=== PATIENT | male | born 1945 | race Caucasian/White ===

== ENCOUNTER → 2016-07-29 | Outpatient (CLI) | payer OTHER ==
--- NOTE | 2016-07-29 22:35 | US ---
Bilateral Lower Extremity Duplex Venous Doppler Interventional Consult Relevant History: Left ankle swelling and pain. Pain is especially bad with walking. Patient compl ains of significant calf and foot pain with walking and any degree of prolonged standing. His physical exam shows indeed pitting edema at the left ankle above the sock line. There is a mild degree of edema on the right. There are extrinsically visible ropey varicosities at the medial knee and medial calf on the left, and extending down to his foot. There is a milder degree of ropy varico sities on the right. There is no cellulitis or ulceration. Conservatively, the patient has tried elevation and walking and exercise and frequent pain medication . He takes pain medication seven days a week. The patient is referred for varicose vein evaluation as the source of his leg pain. TECHNIQUE: Bilateral duplex upright ultrasound of the lower extremities are performed by myself, fol lowed by discussion with the patient. FINDINGS Left: The great saphenous vein measures 10 mm at the saphenofemoral junction, 6.2 mm at the proximal thigh, and exits the sheath where it measures 5.3 mm very superficially. At the level of the knee, it contributes to large extrinsically visible ropey varicose veins. It then goes back into the sheat h at the mid calf, where it measures 4.8 mm. There is no calenderer on the left. The great saphenous system demonstrates 12 second reflux throughout its entire course from ankle to g roin. The lesser saphenous system and vein of Giacomini are normal. There is no ALT. Right: The great saphenous system is normal in size, and does not show reflux. It measures 3.6 mm p roximally and maintains that size throughout. However, at the level of the proximal calf and knee, t here are tributaries that come off of the greater saphenous system that demonstrate greater than 5 se cond reflux. There is a calenderer at the distal calf, measuring 3.4 mm, that does not show signific ant reflux. The lesser saphenous system is normal. IMPRESSIONS 1. 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 2. Small tributaries on the left. 3. Refluxing tributaries on the right below the knee. Treatment recommendations 1. There is no question in my mind that the varicosities and the extent of venous hypertension on th e left is a source of the patient's leg cramp and pain. Treatment is recommended for this reason. 2. Treatment is recommended at this stage on the right for preventative measures. 3. Laser ablation of the left great saphenous vein from ankle to groin, followed by multivessel scle rotherapy. 4. Multivessel sclerotherapy below the knee involving refluxing tributaries on the right. Both procedures can be done on the same day. A prescription of medical grade compression stocking wa s given to the patient. All of the above are discussed with the patient, who expressed understanding . Thank you very much for your referral. Total [id number] consultation was 45 minutes. Crosscutting Measure: Patient's current list of medications including all known prescriptions, over- the-counters, herbals, and vitamin/mineral/dietary supplements are reviewed. Medications' name, dosa ge, frequency, and route of administration are confirmed. Patient is a nonsmoker.
== END ==
LOC: FIMAGING 11:57
PROVIDERS: ATTEND Family Medicine
DX: I83.812 Varicose veins of left lower extremity with pain (principal)

== ENCOUNTER 2016-08-26 07:42 | Day surgery (SDC) | payer OTHER ==
[2016-08-26] MEDS ORDERED: fentaNYL 100 MCG/2 ML INJ ONE (07:49)
[2016-08-26] MEDS ORDERED: MIDAZOLAM 2 MG/2 ML VIAL ONE (07:49)
[2016-08-26] MEDS ORDERED: SODIUM TETRADECYL SULFATE 60 MG/2 ML VIAL IV ONE (08:18)
[2016-08-26] MEDS ORDERED: LIDO/EPI 1% **for epidural** 30 ML SDV ONE (08:18)
[2016-08-26] MEDS ORDERED: HYDROCODONE/APAP 5/325 TAB PO PRN (10:34)
[2016-08-26] MEDS ORDERED: ONDANSETRON 4 MG/2 ML VIAL IVP PRN (10:34)
[2016-08-26] MEDS ORDERED: IBUPROFEN 200 MG TAB PO ONE (10:34)
[2016-08-26] MEDS ORDERED: NS 1,000 ML IV SCH (10:34)
[2016-08-26] MEDS ORDERED: ONDANSETRON DISINTEGRATING 4 MG TAB PO PRN (10:34)
== END 2016-08-26 12:05 | disposition home or self-care (01) ==
LOC: FIMAGING 07:42
PROVIDERS: ATTEND Radiology Diagnostic Radiology
PROC: 3E033TZ Introduction of Destructive Agent into Peripheral Vein, Percutaneous Approach (ICD-10-PCS; 2016-08-26)
PROC: 065Q3ZZ Destruction of Left Saphenous Vein, Percutaneous Approach (ICD-10-PCS; principal; 2016-08-26 10:09)
PROC: 3E033TZ Introduction of Destructive Agent into Peripheral Vein, Percutaneous Approach (ICD-10-PCS; principal; 2016-08-26 10:09)
DX: I83.813 Varicose veins of bilateral lower extremities with pain (principal)
CPT/HCPCS: J2250; J2405; J3010

== ENCOUNTER → 2016-09-03 | Outpatient (CLI) | payer OTHER | LOC: FIMAGING 12:32 | PROVIDERS: ATTEND Radiology Diagnostic Radiology | DX: Z09 Encounter for follow-up examination after completed treatment for conditions other than malignant neoplasm (principal) ==

== ENCOUNTER → 2016-10-26 | Outpatient (CLI) | payer OTHER | LOC: FIMAGING 07:49 | PROVIDERS: ATTEND Radiology Diagnostic Radiology | DX: M79.605 Pain in left leg (principal); I80.3 Phlebitis and thrombophlebitis of lower extremities, unspecified ==

== ENCOUNTER → 2016-11-18 | Day surgery (SDC) | payer OTHER ==
[~2016-11-18] MED LIST: SODIUM TETRADECYL SULFATE 60 MG/2 ML VIAL IV ONE
== END | disposition home or self-care (01) ==
LOC: FIMAGING 13:11
PROVIDERS: ATTEND Radiology Diagnostic Radiology
PROC: 3E033TZ Introduction of Destructive Agent into Peripheral Vein, Percutaneous Approach (ICD-10-PCS; principal; 2016-11-18)
DX: I83.90 Asymptomatic varicose veins of unspecified lower extremity (principal)

== ENCOUNTER → 2017-02-23 | Outpatient (CLI) | payer OTHER | LOC: GIMAGING 14:48 | PROVIDERS: ATTEND Family Medicine | DX: M47.896 Other spondylosis, lumbar region (principal); M51.26 Other intervertebral disc displacement, lumbar region; M53.86 Other specified dorsopathies, lumbar region | CPT/HCPCS: 72100-PO ==

== ENCOUNTER → 2017-05-06 | Outpatient (CLI) | payer OTHER | LOC: FIMAGING 07:43 | PROVIDERS: ATTEND Radiology Diagnostic Radiology | DX: L97.829 Non-pressure chronic ulcer of other part of left lower leg with unspecified severity (principal) ==

== ENCOUNTER → 2017-06-22 | Day surgery (SDC) | payer OTHER ==
[~2017-06-22] MED LIST changes: +LIDO/EPI 1% **for epidural** 30 ML SDV ONE; +LIDOCAINE 1% 300 MG/30 ML SDV ONE; +SODIUM TETRADECYL SULFATE 3% 2 ML VIAL IV ONE; -SODIUM TETRADECYL SULFATE 60 MG/2 ML VIAL IV ONE
== END | disposition home or self-care (01) ==
LOC: FIMAGING 12:52
PROVIDERS: ATTEND Radiology Diagnostic Radiology
DX: I83.812 Varicose veins of left lower extremity with pain (principal)

== ENCOUNTER → 2018-07-20 | Outpatient (CLI) | payer OTHER | LOC: FIMAGING 12:47 | PROVIDERS: ATTEND Podiatrist Foot & Ankle Surgery | DX: S86.312A Strain of muscle(s) and tendon(s) of peroneal muscle group at lower leg level, left leg, initial encounter (principal); S93.02XA Subluxation of left ankle joint, initial encounter ==

== ENCOUNTER → 2018-11-03 | Outpatient (CLI) | payer OTHER | LOC: BMCIMAGING 15:37 | PROVIDERS: ATTEND Podiatrist Foot & Ankle Surgery | DX: M25.872 Other specified joint disorders, left ankle and foot (principal); M71.21 Synovial cyst of popliteal space [Baker], right knee ==

== ENCOUNTER → 2018-12-11 | Outpatient (CLI) | payer OTHER | LOC: BMCIMAGING 09:05 ==

== ENCOUNTER → 2018-12-29 | Outpatient (CLI) | payer OTHER | LOC: FIMAGING 08:10 ==